=== PATIENT | male | born 1955 | race Caucasian/White ===

== ENCOUNTER 2016-06-01 16:00 | Emergency (ER) | payer MEDICAID, OTHER ==
--- NOTE | 2016-06-01 16:05 | EDPHY ---
H & P - Medical/Surgical History Hx Asthma: No Hx Chronic Respiratory Disease: No Hx Diabetes: No Hx Cardiac Disease: No Hx Renal Disease: No Hx Cirrhosis: No Hx Alcoholism: No Hx HIV/AIDS: No Hx Splenectomy or Spleen Trauma: No Other PMH: denies Time Seen by Provider: 06/01/16 16:02 HPI/ROS: CHIEF COMPLAINT: M1 hold, anxiety depression HISTORY OF PRESENT ILLNESS: 60-year-old male arrives via ambulance on an M1 hold after he was seen at the [facility] walk-in center and placed on M1 hold because he has not been eating, sleeping, has lost 10 lb in the past week is unable to perform errands or attend appointments due to The "paralyzing anxiety and depression." He was felt to be gravely disabled by the [facility] health junior sales assistant. He denies suicidal or homicidal ideation. He denies hallucination. He denies alcohol or drug use. REVIEW OF SYSTEMS: A ten point review of systems was performed and is negative with the exception of the items mentioned in the HPI PAST MEDICAL & SURGICAL HISTORY: Depression, anxiety SOCIAL HISTORY:denies alcohol or drug use PHYSICAL EXAM (Prior to examination, patient consented to physical exam, hands were washed and my usual and customary physical exam procedures followed) 1) GENERAL: Well-developed, well-nourished, alert and oriented. Appears to be in no acute distress. 2) HEAD: Normocephalic, atraumatic 3) HEENT: Pupils equal, round, reactive to light bilaterally. Sclera anicteric. 4) NECK: Full range of motion, no meningeal signs. 5) LUNGS: Clear auscultation bilaterally 6) HEART: Regular rate and rhythm, no murmur, no heave, no gallop. 7) ABDOMEN: No guarding, no rebound, no focal tendernesss, 8) MUSCULOSKELETAL: Moving all extremities, no focal areas of tenderness, no obvious trauma. No peripheral edema or discoloration. 9) BACK: No CVA tenderness, no midline vertebral tenderness, no fluctuance, no step-off, no obvious trauma, no visual or palpable abnormality. 10) SKIN: No rash, no petechiae. 11) Psychiatric: Patient is oriented X 3, there is no agitation.He has calm and cooperative DIFFERENTIAL DIAGNOSIS: in no particular order including but not limited to depression, anxiety, suicidality, homicidality (Benigno Arshad Paige) Constitutional: Initial Vital Signs Temperature (C) 36.7 C 06/01/16 16:12 Heart Rate 73 06/01/16 16:12 Respiratory Rate 20 06/01/16 16:12 Blood Pressure 166/101 H 06/01/16 16:12 O2 Sat (%) 96 06/01/16 16:12 O2 Delivery Mode Room Air Allergies/Adverse Reactions: No Known Allergies Allergy (Unverified 02/23/13 11:01) Home Medications: Medication Instructions Recorded AMBIEN 10 mg 02/23/13 Luvox Cr 02/23/13 Fluvoxamine Maleate 100 mg BID 06/02/16 LISINOPRIL/HYDROCHLOROTHIAZIDE 0.5 tab 06/02/16 [PRINZIDE 20-25 MG TABLET] Medical Decision Making ED Course/Re-evaluation: 4:05 p.m.: Patient seen on arrival by myself. 5:00 p.m.: Care turned over to Dr. Arian Diana (Benigno Arshad Paige) Other Provider: Patient signed out to Dr. Espinal at 11pm pending placement. (Arian Diana) Patient has been accepted at [facility] by Dr. Jacobs. Transfer paperwork completed. (Silviano Espinal) - Data Points Laboratory Results: Laboratory Results 06/01/16 16:35 06/01/16 16:35 06/01/16 06/01/16 06/01/16 18:20 16:35 16:35 WBC RBC Hgb Hct MCV MCH MCHC RDW Plt Count MPV Neut % (Auto) Lymph % (Auto) Coles % (Auto) Eos % (Auto) Baso % (Auto) Nucleat RBC Rel Count Absolute Neuts (auto) Absolute Lymphs (auto) Absolute Monos (auto) Absolute Eos (auto) Absolute Basos (auto) Absolute Nucleated RBC Immature Gran % Immature Gran # Sodium 122 mEq/L L mEq/L (134-144) Potassium 3.6 mEq/L mEq/L (3.5-5.2) Chloride 87 mEq/L L mEq/L (97-110) Carbon Dioxide 19 mEq/l L mEq/l (22-31) Anion Gap 16 mEq/L mEq/L (8-16) BUN 8 mg/dL mg/dL (7-23) Creatinine 0.8 mg/dL mg/dL (0.7-1.3) Estimated GFR > 60 Glucose 82 mg/dL mg/dL (70-100) Calcium 10.0 mg/dL mg/dL (8.5-10.4) TSH Pending Salicylates < 1.0 mg/dL L mg/dL (2.0-20.0) Urine Opiates Screen NEGATIVE (NEGATIVE) Acetaminophen < 10 mcg/mL L mcg/mL (10.0-30.0) Urine Barbiturates NEGATIVE (NEGATIVE) Ur Phencyclidine Scrn NEGATIVE (NEGATIVE) Ur Amphetamine Screen NEGATIVE (NEGATIVE) U Benzodiazepines Scrn NEGATIVE (NEGATIVE) Urine Cocaine Screen NEGATIVE (NEGATIVE) U Marijuana (THC) Screen NEGATIVE (NEGATIVE) Ethyl Alcohol < 10 mg/dL mg/dL (0-10) 06/01/16 16:35 WBC 5.10 10^3/uL 10^3/uL (3.80-9.50) RBC 4.72 10^6/uL 10^6/uL (4.40-6.38) Hgb 16.2 g/dL g/dL (13.7-17.5) Hct 44.4 % % (40.0-51.0) MCV 94.1 fL fL (81.5-99.8) MCH 34.3 pg H pg (27.9-34.1) MCHC 36.5 g/dL g/dL (32.4-36.7) RDW 11.5 % % (11.5-15.2) Plt Count 285 10^3/uL 10^3/uL (150-400) MPV 8.8 fL fL (8.7-11.7) Neut % (Auto) 67.1 % % (39.3-74.2) Lymph % (Auto) 18.2 % % (15.0-45.0) Coles % (Auto) 12.5 % % (4.5-13.0) Eos % (Auto) 1.2 % % (0.6-7.6) Baso % (Auto) 0.4 % % (0.3-1.7) Nucleat RBC Rel Count 0.0 % % (0.0-0.2) Absolute Neuts (auto) 3.42 10^3/uL 10^3/uL (1.70-6.50) Absolute Lymphs (auto) 0.93 10^3/uL L 10^3/uL (1.00-3.00) Absolute Monos (auto) 0.64 10^3/uL 10^3/uL (0.30-0.80) Absolute Eos (auto) 0.06 10^3/uL 10^3/uL (0.03-0.40) Absolute Basos (auto) 0.02 10^3/uL 10^3/uL (0.02-0.10) Absolute Nucleated RBC 0.00 10^3/uL 10^3/uL (0-0.01) Immature Gran % 0.6 % % (0.0-1.1) Immature Gran # 0.03 10^3/uL 10^3/uL (0.00-0.10) Sodium Potassium Chloride Carbon Dioxide Anion Gap BUN Creatinine Estimated GFR Glucose Calcium TSH Salicylates Urine Opiates Screen Acetaminophen Urine Barbiturates Ur Phencyclidine Scrn Ur Amphetamine Screen U Benzodiazepines Scrn Urine Cocaine Screen U Marijuana (THC) Screen Ethyl Alcohol Medications Given: Discontinued Medications Lisinopril/HCTZ (Zestoretic) 1 ea PO EDNOW ONE Stop: 06/02/16 00:49 Last Admin: 06/02/16 01:28 Dose: 1 ea Lorazepam (Ativan) 1 mg PO EDNOW ONE Stop: 06/01/16 16:16 Last Admin: 06/01/16 16:40 Dose: 1 mg Lorazepam (Ativan) 1 mg PO EDNOW ONE Stop: 06/02/16 00:46 Last Admin: 06/02/16 01:10 Dose: 1 mg Zolpidem Tartrate (Ambien) 10 mg PO EDNOW ONE Stop: 06/02/16 00:46 Last Admin: 06/02/16 01:10 Dose: 10 mg Departure - Departure Disposition: Other Psych, Not Christina Clinical Impression: Gravely disabled, Anxiety Depression Qualifiers: Depression Type: major depressive disorder Major depression recurrence: single episode Active/Remission status: currently active Major depression episode severity: severe Psychotic features: without psychotic features Qualified Code(s ): F32.2 - Major depressive disorder, single episode, severe without psychotic features Condition: Fair Referrals: Patient,NotPresent [Unknown] - As per Instructions
[2016-06-01] MEDS ORDERED: LORazepam 1 MG TAB PO ONE (16:15)
[2016-06-01 16:46] LABS: % IMMATURE GRANULYOCYTES 0.6 % (0.0-1.1); ABSOLUTE IMMATURE GRANULOCYTES 0.03 10^3/uL (0.00-0.10); ADD DIFF? NO; ADD MORPH? NO; ADD SCAN? NO; ATYPICAL LYMPHOCYTE FLAG 30 (0-99); FRAGMENT RBC FLAG 0 (0-99); HEMATOCRIT 44.4 % (40.0-51.0); HEMOGLOBIN 16.2 g/dL (13.7-17.5); LEFT SHIFT FLG 0 (0-99); LIPEMIA HEMOLYSIS FLAG 90 (0-99); MEAN CELL HEMOGLOBIN 34.3 pg (27.9-34.1); MEAN CELL HEMOGLOBIN CONCENTR. 36.5 g/dL (32.4-36.7); MEAN CELL VOLUME 94.1 fL (81.5-99.8); MEAN PLATELET VOLUME 8.8 fL (8.7-11.7); PLATELET CLUMPS FLAG 0 (0-99); PLATELET COUNT 285 10^3/uL (150-400); RED BLOOD CELL COUNT 4.72 10^6/uL (4.40-6.38); RED CELL DISTRIBUTION WIDTH 11.5 % (11.5-15.2)
[2016-06-01 17:04] LABS: ANION GAP 16 mEq/L (8-16); CARBON DIOXIDE 19 mEq/l (22-31); CHLORIDE 87 mEq/L (97-110); CREATININE 0.8 mg/dL (0.7-1.3); ETHANOL SERUM < 10 mg/dL (0-10); GLOMERULAR FILTRATION RATE > 60; GLUCOSE 82 mg/dL (70-100); POTASSIUM 3.6 mEq/L (3.5-5.2); SALICYLATE < 1.0 mg/dL (2.0-20.0); SODIUM 122 mEq/L (134-144)
[2016-06-02] MEDS ORDERED: LORazepam 1 MG TAB PO ONE (00:45)
[2016-06-02] MEDS ORDERED: ZOLPIDEM TARTRATE 5 MG TAB PO ONE (00:45)
[2016-06-02] MEDS ORDERED: LISINOPRIL/HCTZ 10/12.5 MG 1 EA TAB PO ONE (00:48)
[2016-06-02 01:43] VITALS: RESP 16; O2SAT 94
[2016-06-02 05:02] VITALS: BP 142/84; PULSE 80; TEMP 97.7
[2016-06-02] MEDS ORDERED: LISINOPRIL/HCTZ 10/12.5 MG 1 EA TAB PO SCH (09:00)
== END 2016-06-02 06:01 ==
LOC: EDUNIT# → EEVIPCON 16:00
DX: F32.2 Major depressive disorder, single episode, severe without psychotic features (principal); F41.9 Anxiety disorder, unspecified; F79 Unspecified intellectual disabilities
CPT/HCPCS: 80305; G0480

== ENCOUNTER 2016-06-19 10:40 | Emergency (ER) | payer MEDICAID ==
[2016-06-19 10:51] VITALS: PULSE 74; TEMP 97.9
--- NOTE | 2016-06-19 11:10 | EDPHY ---
H & P Stated Complaint: head lac HPI/ROS: CHIEF COMPLAINT: Rollerblading injury, forehead abrasion, possible laceration HISTORY OF PRESENT ILLNESS: Patient was rollerblading this morning around 3:00 a.m. he frequently does due to his insomnia. He says he tripped, falling on his forehead. He is this is forehead. He denies any loss of conscious. No headache. No dizziness. No confusion. No changes in vision. No neck pain. No chest or back pain. No injury to the arms or legs. The forehead pain is minimal. He is here just to make sure this does not get infected and to see if it needs to be suture repaired. He does not take any blood thinners. No other associated complaints or modifying factors. TIME OF INJURY: 3:30-4:00 a.m. TETANUS STATUS: Less than 2 years ago REVIEW OF SYSTEMS: Ten systems reviewed and are negative unless otherwise noted in the HPI EXAMINATION General Appearance: Alert, no distress Head: normocephalic. Left forehead abrasion. No Kumar sign. No raccoon eyes. No hematoma. No crepitus or deformity. Eyes: Pupils equal and round, no conjunctival pallor or injection. EOMs intact. No nystagmus ENT, Mouth: Mucous membranes moist Neck: Normal inspection. No bony tenderness. No crepitus, step-off or deformity. Normal and painless range of motion. Respiratory: No dyspnea or retractions. No distress Cardiovascular: Pulses normal throughout. Brisk cap refill. No murmur. Gastrointestinal: No distention Back: non-tender, no bony abnormalities Neurological: GCS 15. A&O, sensory symmetric, strength symmetric Skin: Warm and dry, no rash. Abrasion to the left forehead that is covered in dried blood and mild debris. Further examination after wound cleaning Extremities: Nontender, no pedal edema Psychiatric: Mood and affect normal DIFFERENTIAL DIAGNOSES: Including but not limited to closed head injury, forehead abrasion, or contusion , laceration, concussion, intracranial hemorrhage MDM: 10:57 a.m. Mechanical fall with abrasion left forehead that occurred at 4:00 a.m. this morning. No complaints elsewhere. Closed head injury by [place] CT head rules does not warrant a CT scan at this time. I have anesthetized the wound. We will proceed with irrigation and re-evaluate the wound for possibility of needing closure. 12:10 p.m. after extensive irrigation debridement, there are 2 lacerations noted. The 1st over the eyebrow that is approximately 1.5 cm, curvilinear with jagged edges. The 2nd is a 1 cm, stellate wound higher up on the eyebrow. Both of these been closed as best as possible. There is a moderate amount of tissue avulsion present. Wound has been copiously irrigated and dressed with bacitracin. After suturing the wound, he points out that his left knee is actually hurting. I have re-evaluated the lower extremity does have some edema and pain on the left knee. I have ordered an x-ray to rule out patellar fracture. Range of motion is fully intact. He is neuro intact distally to that injury 12:55 p.m. left knee x-ray as interpreted by me reveals no acute findings other than soft tissue swelling. There is no fracture dislocation. He is ambulatory with some pain but neurovascularly intact. He will be discharged home with standard weight-bearing as tolerated, ice, elevation instructions. Follow up with primary care physician and Orthopedics for definitive care. Follow up with Dr. Yang 4 wound care for the forehead. Return here in 5-7 days for suture removal. PROCEDURE: Laceration repair Consent: Verbal Location: Left forehead Length of repair: 1.5 cm his lower wound, 1 cm, stellate upper wound Complexity: complex Layer involvement: Single Anesthesia: Local, 1% lidocaine with epinephrine, 6 mL Irrigation: Extensive Debridement: Moderate including gravel and dirt Procedure description: Following good anesthesia, the wound was copiously irrigated. Wound bed was explored and there is no foreign body noted. Wound borders were approximated well with good hemostasis. there are multiple areas of tissue avulsion that cannot repaired with suture. Tolerated well without complication. Suture/Staple material: 6-0 Prolene, lower wound: 4 simple interrupted sutures. Upper wound: 3 simple interrupted sutures Wound care: Routine as discussed Suture/Staple removal: 5-7 Days SUTURE STAPLE REMOVAL: 5-7 days ED Precautions: Worsening pain. Erythema, edema, cyanosis, pallor, paresthesia or anesthesia. SUPERVISION: This patient was independently evaluated without direct examination by the attending physician. Case was discussed with attending physician. Case discussed with Dr. Montilla Source: Patient Exam Limitations: No limitations - Personal History Current Tetanus Diphtheria and Acellular Pertussis (TDAP): Yes Tetanus Vaccine Date: within the last 10 years - Medical/Surgical History Hx Asthma: No Hx Chronic Respiratory Disease: No Hx Diabetes: No Hx Cardiac Disease: No Hx Renal Disease: No Hx Cirrhosis: No Hx Alcoholism: No Hx HIV/AIDS: No Hx Splenectomy or Spleen Trauma: No Other PMH: HTN. anxiety. depression . Ortho surgeries. - Social History Smoking Status: Never smoked Constitutional: Initial Vital Signs Temperature (C) 97.9 F 06/19/16 10:49 Heart Rate 74 06/19/16 10:49 Respiratory Rate 16 06/19/16 10:49 Blood Pressure 144/90 H 06/19/16 10:49 O2 Sat (%) 94 06/19/16 10:49 O2 Delivery Mode Room Air Allergies/Adverse Reactions: No Known Allergies Allergy (Unverified 02/23/13 11:01) Home Medications: Medication Instructions Recorded AMBIEN 10 mg 02/23/13 Luvox Cr 02/23/13 Fluvoxamine Maleate 100 mg BID 06/02/16 LISINOPRIL/HYDROCHLOROTHIAZIDE 0.5 tab 06/02/16 [PRINZIDE 20-25 MG TABLET] Cephalexin [Keflex (*)] 500 mg PO TID #30 cap 06/19/16 Departure - Departure Disposition: Home, Routine, Self-Care Clinical Impression: Avulsion of soft tissue Forehead laceration Qualifiers: Encounter type: initial encounter Qualified Code(s): S01.81XA - Laceration without foreign body of other part of head, initial encounter Contusion of knee, left Qualifiers: Encounter type: initial encounter Qualified Code(s): S80.02XA - Contusion of left knee, initial encounter Closed head injury Qualifiers: Encounter type: initial encounter Qualified Code(s): S09.90XA - Unspecified injury of head, initial encounter Condition: Good Instructions: Care For Your Stitches (ED), Laceration (ED), Concussion (ED), Head Injury (ED), Skin Avulsion (ED), Abrasion (ED) Additional Instructions: daily wound care as discussed. Follow up here in 5-7 days for suture removal. Follow up with Dr. Amy Yang for outpatient wound care. Referrals: CARIDAD HILL [Primary Care Provider] - As per Instructions Amy Yang MD [Medical Doctor] - As per Instructions Don Ruelas MD [Medical Doctor] - As per Instructions Prescriptions: Cephalexin [Keflex (*)] 500 mg PO TID #30 cap
[2016-06-19 13:11] VITALS: BP 131/74; RESP 18; O2SAT 98
== END 2016-06-19 13:11 | disposition home or self-care (01) ==
PROC: 0HQ1XZZ Repair Face Skin, External Approach (ICD-10-PCS; principal; 2016-06-19)
DX: S01.81XA Laceration without foreign body of other part of head, initial encounter (principal); S80.02XA Contusion of left knee, initial encounter; I10 Essential (primary) hypertension; W01.0XXA Fall on same level from slipping, tripping and stumbling without subsequent striking against object, initial encounter